=== PATIENT | female | born 1985 | race Caucasian/White ===

== ENCOUNTER 2022-01-24 12:14 | Emergency (ER) | payer OTHER, SELFPAY ==
[2022-01-24 12:24] VITALS: BP 113/72; PULSE 68; RESP 18; TEMP 36.6; O2SAT 98; BMI 27.3
== END 2022-01-24 17:00 | disposition left against medical advice (07) ==
PROVIDERS: Emergency Provider Family Medicine Addiction Medicine
CPT/HCPCS: 99281

== ENCOUNTER 2023-04-19 10:03 | Emergency (ER) | payer OTHER, SELFPAY ==
[2023-04-19 10:13] VITALS: BP 134/91; PULSE 65; RESP 14; TEMP 36.7; O2SAT 100; BMI 27.4
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
[2023-04-19] MEDS: IBUPROFEN 400 MG TABLET 800 MG PO (11:37)
[2023-04-19 11:42] VITALS: BP 114/74; PULSE 62; RESP 16; O2SAT 100
== END 2023-04-19 11:45 | disposition home or self-care (01) ==
PROVIDERS: Emergency Provider Student in an Organized Health Care Education/Training Program
DX: S16.1XXA Strain of muscle, fascia and tendon at neck level, initial encounter (principal); V89.2XXA Person injured in unspecified motor-vehicle accident, traffic, initial encounter
CPT/HCPCS: 99283